=== PATIENT | male | born 1945 | race Caucasian/White ===

== ENCOUNTER 2018-02-07 14:14 | Emergency (ER) | payer OTHER ==
[~2018-02-07] VITALS: Ht 172.7 cm; Wt 115.5 kg
[~2018-02-07 14:14] MED LIST: ASPIR-LOW81 MG PO; ELIQUIS5 MG PO; FAMOTIDINE20 MG PO; FUROSEMIDE40 MG PO; GLIMEPIRIDE2 MG PO; LEVAQUIN500 MG PO; LIDEX 0.05% CRE60 GM TP; LISINOPRIL-HCT1 EACH PO; METFORMIN HCL500 MG PO; PRAVASTATIN SOD40 MG PO; ROPINIROLE HCL0.5 MG PO; SPIRIVA RESPIMAT4 GM IH; VENTOLIN HFA18 GM IH
[2018-02-07 17:27] VITALS: BP 186/85
== END 2018-02-07 17:30 | disposition home or self-care (01) ==
LOC: EME 14:14
DX: Z04.1 Encounter for examination and observation following transport accident (principal); J44.9 Chronic obstructive pulmonary disease, unspecified; Z98.890 Other specified postprocedural states; Z86.79 Personal history of other diseases of the circulatory system
CPT/HCPCS: 71046; 72040; 99281; 99283